=== PATIENT | female | born 1995 | race Caucasian/White ===

== ENCOUNTER 2017-07-11 16:07 | Observation (INO) | payer BC ==
[~2017-07-11] VITALS: Ht 157.5 cm; Wt 66.4 kg
[~2017-07-11 16:07] MED LIST: CELEXA20 MG PO; DIAZEPAM1 EAC1; DIAZEPAM1 EAC1 PR; KEPPRA750 MG PO; Keppra PO; LAMICTAL XR200 MG PO; LAMICTAL100 MG PO; LAMICTAL150 MG PO; LAMICTAL200 MG PO; LAMOTRIGINE150 MG PO; LAMOTRIGINE200 MG PO; LORAZEPAM1 MG PO; OXCARBAZEPINE150 MG PO; PROMETHAZINE HC25 M1 PO; TOPAMAX100 MG PO; TOPAMAX200 MG PO; TOPAMAX50 MG PO; ZONEGRAN100 MG PO; ZONEGRAN50 MG PO
[2017-07-11 16:33] LABS: HEMATOCRIT 38.7 % (36.0-46.0); HEMOGLOBIN 13.4 G/DL (11.9-15.5); MCH 29.9 PG (29.0-34.0); MCHC 34.6 G/DL (30.0-36.0); MCV 86.4 FL (83-99); PLATELET COUNT 268 K/uL (156-360); RBC DIS.WIDTH-CV 14.3 % (11.8-14.6); RBC DIS.WIDTH-SD 44.8 % (39-53); RED BLOOD COUNT 4.48 M/uL (3.80-5.20); WHITE BLOOD COUNT 9.9 K/uL (4.1-10.2)
[2017-07-11 16:45] LABS: ALBUMIN 4.4 g/dL (3.2-4.8); CHLORIDE 108 mEq/L (99-109); POTASSIUM 3.4 mEq/L (3.7-5.4); SODIUM 138 mEq/L (136-147)
[2017-07-11 16:47] LABS: GLUCOSE 113 mg/dL (70-99)
[2017-07-11 16:48] LABS: TOTAL PROTEIN 8.1 g/dL (6.4-8.3)
[2017-07-11 16:49] LABS: TOTAL BILIRUBIN 0.6 mg/dL (0.0-1.0)
[2017-07-11 16:50] LABS: SERUM ETHYL ALCOHOL < 10 mg/dL
[2017-07-11 16:51] LABS: ALKALINE PHOSPHATASE 57 IU/L (3-129); CREATININE 0.7 mg/dL (0.6-1.3); GFR ESTIMATE (CALCULATED) > 59 mL/min/
[2017-07-11 16:52] LABS: UREA NITROGEN (BUN) 7 mg/dL (9-23)
[2017-07-11 16:53] LABS: AST (GOT) 20 IU/L (2-34)
[2017-07-11 16:54] LABS: ALT (GPT) 15 IU/L (3-49)
[2017-07-11 17:20] LABS: QUANTITATIVE HCG 67111.6 MIU/ML
[2017-07-11 18:44] LABS: APPEARANCE CLEAR ((CLEAR)); BILIRUBIN NEGATIVE; BLOOD NEGATIVE; COLOR STRAW ((YELLOW)); GLUCOSE (STRIP) NEGATIVE; KETONES 20; LEUKOCYTES NEGATIVE; NITRITE NEGATIVE; PROTEIN (STRIP) NEGATIVE; SPECIFIC GRAVITY 1.006 (1.000-1.030); UROBILINOGEN 0.2 MG/DL (0.2-1.0)
[2017-07-11 18:51] LABS: AMPHETAMINE NEGATIVE (500 ng/mL); BARBITURATES NEGATIVE (200 ng/mL); BENZODIAZEPINES PRESUMPTIVE POSITIVE (150 ng/mL); BUPRENORPHINE NEGATIVE (10 ng/mL); COCAINE NEGATIVE (150 ng/mL); METHADONE NEGATIVE (200 ng/mL); METHAMPHETAMINE NEGATIVE (500 ng/mL); OPIATES (MORPHINE) NEGATIVE (100 ng/mL); OXYCODONE NEGATIVE (100 ng/mL); PHENCYCLIDINE NEGATIVE (25 ng/mL); PROPOXYPHENE NEGATIVE (300 ng/mL); THC CANNABINOIDS NEGATIVE (50 ng/mL); TRICYCLIC ANTIDEPRESSANTS NEGATIVE (300 ng/mL)
[2017-07-11 19:32] LABS: BENZODIAZEPINES, URINE SCREEN POSITIVE (200 ng/mL)
[2017-07-11] MEDS ORDERED: LAMOTRIGINE200 M1 PO (20:16)
[2017-07-11] MEDS ORDERED: DIAMOX250 MG PO (20:17)
[2017-07-11] MEDS ORDERED: LEVETIRACETAM750 MG PO (20:17)
[2017-07-11 22:47] VITALS: BP 108/57
[2017-07-12 04:17] VITALS: BP 98/56
[2017-07-12 05:40] LABS: HEMATOCRIT 28.6 % (36.0-46.0); MCHC 33.6 G/DL (30.0-36.0); MCV 89.4 FL (83-99); RBC DIS.WIDTH-CV 14.9 % (11.8-14.6)
[2017-07-12 05:42] LABS: HEMOGLOBIN 9.6 G/DL (11.9-15.5); PLATELET COUNT 181 K/uL (156-360)
[2017-07-12 05:55] LABS: CHLORIDE 112 MEQ/L (99-109); CREATININE 0.5 MG/DL (0.6-1.3); GFR ESTIMATE (CALCULATED) > 59 mL/min/; POTASSIUM 3.6 MEQ/L (3.7-5.4); SODIUM 137 MEQ/L (136-147); UREA NITROGEN (BUN) 7 mg/dL (9-23)
[2017-07-12 06:19] LABS: GLUCOSE 77 mg/dL (70-99)
[2017-07-12 07:00] VITALS: BP 112/70
[2017-07-12 09:25] LABS: UR CREATININE CONCENTRATION 124.3 MG/DL
[2017-07-12 10:59] LABS: IRON 87 MCG/DL (35-150); TRANSFERRIN (TIBC) 187.6 mg/dL (215-380); TRANSFERRIN SATUR. 46 % (20-55)
[2017-07-12 11:18] LABS: FERRITIN 6 NG/ML (10-291)
[2017-07-12 11:44] VITALS: BP 90/53
[2017-07-12 17:08] VITALS: BP 98/56
[2017-07-12 19:49] VITALS: BP 100/59
[2017-07-13 00:10] VITALS: BP 96/51
[2017-07-13 05:39] VITALS: BP 100/58
[2017-07-13 05:49] LABS: BASOPHIL (%) 0.3 % (0-1); EOSINOPHIL (%) 1.4 % (0-5); EOSINOPHIL COUNT 0.1 K/uL (0-0.3); HEMOGLOBIN 10.4 G/DL (11.9-15.5); IMMATURE GRANULOCYTE (%) 0.3 % (0.0-0.7); LYMPHOCYTE (%) 23.3 % (15-42); LYMPHOCYTE COUNT 2.1 K/uL (1.0-2.8); MCH 29.1 PG (29.0-34.0); MCHC 32.5 G/DL (30.0-36.0); MCV 89.4 FL (83-99); MONOCYTE (%) 5.9 % (3-12); MONOCYTE COUNT 0.5 K/uL (0-0.8); NEUTROPHIL (%) 68.8 % (45-76); PLATELET COUNT 202 K/uL (156-360); RBC DIS.WIDTH-CV 14.7 % (11.8-14.6); RED BLOOD COUNT 3.58 M/uL (3.80-5.20); WHITE BLOOD COUNT 8.8 K/uL (4.1-10.2)
[2017-07-13 06:32] LABS: CHLORIDE 111 MEQ/L (99-109); CREATININE 0.5 MG/DL (0.6-1.3); GFR ESTIMATE (CALCULATED) > 59 mL/min/; GLUCOSE 78 mg/dL (70-99); POTASSIUM 3.6 MEQ/L (3.7-5.4); SODIUM 138 MEQ/L (136-147); UREA NITROGEN (BUN) 5 mg/dL (9-23)
[2017-07-13 08:05] VITALS: BP 100/56
[2017-07-13 12:04] VITALS: BP 112/76
[2017-07-13] MEDS ORDERED: LAMICTAL XR200 MG PO (14:57)
[2017-07-13] MEDS ORDERED: PRENATAL TABLE1 EAC3 PO (14:58)
[2017-07-13] MEDS ORDERED: FOLIC ACID1 MG PO (14:58)
[2017-07-13 15:05] VITALS: BP 131/78
== END 2017-07-13 15:50 | disposition home or self-care (01) ==
LOC: EME 16:07 → EDOF 21:52 → 4SOUTH 21:52 → EDOF 21:52 → ENRESERV 21:53 → 4SOUTH 22:36
PROVIDERS: Emergency Medicine; Hospitalist; Internal Medicine
DX: O99.351 Diseases of the nervous system complicating pregnancy, first trimester (principal); Z3A.12 12 weeks gestation of pregnancy; G40.909 Epilepsy, unspecified, not intractable, without status epilepticus; Z91.19 Patient's noncompliance with other medical treatment and regimen; O99.321 Drug use complicating pregnancy, first trimester; F12.90 Cannabis use, unspecified, uncomplicated; O99.011 Anemia complicating pregnancy, first trimester; D64.9 Anemia, unspecified; O99.281 Endocrine, nutritional and metabolic diseases complicating pregnancy, first trimester; E87.6 Hypokalemia; O99.341 Other mental disorders complicating pregnancy, first trimester; F41.9 Anxiety disorder, unspecified; O26.891 Other specified pregnancy related conditions, first trimester; O21.9 Vomiting of pregnancy, unspecified
CPT/HCPCS: 80048; 80053; 81003; 82043; 82272; 82570; 82728; 83540; 84466; 84702; 84999; 85025; 85027; 99281; 99285; G0378; G0480; J1650; J1953; J2405; J3480; J7030; J7050

== ENCOUNTER 2017-08-04 14:05 | Inpatient (IN) | payer BC, OTHER ==
[~2017-08-04] VITALS: Ht 157.5 cm; Wt 67.7 kg
[~2017-08-04 14:05] MED LIST changes: +DIAMOX250 MG PO; +FOLIC ACID1 MG PO; +LAMOTRIGINE200 M1 PO; +LEVETIRACETAM750 MG PO; +PRENATAL TABLE1 EAC3 PO
[2017-08-04 15:07] LABS: HEMATOCRIT 33.4 % (36.0-46.0); HEMOGLOBIN 11.5 G/DL (11.9-15.5); MCH 30.3 PG (29.0-34.0); MCHC 34.4 G/DL (30.0-36.0); MCV 88.1 FL (83-99); PLATELET COUNT 236 K/uL (156-360); RBC DIS.WIDTH-CV 14.2 % (11.8-14.6); RBC DIS.WIDTH-SD 45.8 % (39-53); RED BLOOD COUNT 3.79 M/uL (3.80-5.20); WHITE BLOOD COUNT 11.3 K/uL (4.1-10.2)
[2017-08-04 15:17] LABS: CHLORIDE 110 mEq/L (99-109); SODIUM 137 mEq/L (136-147)
[2017-08-04 15:19] LABS: GLUCOSE 163 mg/dL (70-99)
[2017-08-04 15:23] LABS: CREATININE 0.7 mg/dL (0.6-1.3); GFR ESTIMATE (CALCULATED) > 59 mL/min/; UREA NITROGEN (BUN) 9 mg/dL (9-23)
[2017-08-04 17:21] LABS: APPEARANCE TURBID ((CLEAR)); BILIRUBIN NEGATIVE; BLOOD MODERATE; COLOR YELLOW ((YELLOW)); GLUCOSE (STRIP) NEGATIVE; KETONES NEGATIVE; LEUKOCYTES NEGATIVE; NITRITE NEGATIVE; PROTEIN (STRIP) 100; SPECIFIC GRAVITY 1.017 (1.000-1.030); UROBILINOGEN 0.2 MG/DL (0.2-1.0)
[2017-08-04] MEDS ORDERED: FOLIC ACID1 MG PO (17:23)
[2017-08-04] MEDS ORDERED: LAMOTRIGINE200 M1 PO (17:25)
[2017-08-04] MEDS ORDERED: LEVETIRACETAM750 MG PO (17:25)
[2017-08-04] MEDS ORDERED: DIAMOX250 MG PO (17:26)
[2017-08-04] MEDS ORDERED: FLONASE16 G1 BOTH NARES (17:28)
[2017-08-04 17:31] LABS: AMPHETAMINE NEGATIVE (500 ng/mL); BARBITURATES NEGATIVE (200 ng/mL); BENZODIAZEPINES PRESUMPTIVE POSITIVE (150 ng/mL); BUPRENORPHINE NEGATIVE (10 ng/mL); COCAINE NEGATIVE (150 ng/mL); METHADONE NEGATIVE (200 ng/mL); METHAMPHETAMINE NEGATIVE (500 ng/mL); OPIATES (MORPHINE) NEGATIVE (100 ng/mL); OXYCODONE NEGATIVE (100 ng/mL); PHENCYCLIDINE NEGATIVE (25 ng/mL); PROPOXYPHENE NEGATIVE (300 ng/mL); THC CANNABINOIDS NEGATIVE (50 ng/mL); TRICYCLIC ANTIDEPRESSANTS NEGATIVE (300 ng/mL)
[2017-08-04 17:47] LABS: BACTERIA 1+ /HPF; EPITHELIAL CELLS RARE /HPF; MUCUS NONE SEEN /LPF; RED BLOOD CELLS RARE /HPF (0-5); UCUL ADDED? NO; WHITE BLOOD CELLS NONE SEEN /HPF (0-5)
[2017-08-04 17:48] LABS: URIC ACID CRYSTALS 2+ /HPF
[2017-08-04 17:53] LABS: COMMENTS - BLOOD GASES +C; FI02 21 %; PCO2 30 mm Hg (35-45); SITE RR +A; TOTAL RESP RATE 20 resp/min; pH 7.39 (7.35-7.45)
[2017-08-04 17:54] LABS: BASE EXCESS -5.7 mEq/L (-3 to +3); BICARBONATE 18.2 mEq/L (22-26); CARBOXY HGB 1.1 % (0-5); METHEMOGLOBIN 1.1 % (0-1.5); O2 SATURATION (CALCULATED) 99.2 % (95-99); PO2 101 mm Hg (80-100)
[2017-08-04 18:01] LABS: BENZODIAZEPINES, URINE SCREEN Negative (200 ng/mL)
[2017-08-04 18:06] LABS: QUANTITATIVE HCG 34983.4 MIU/ML
[2017-08-04 18:17] LABS: ALBUMIN 3.6 g/dL (3.2-4.8)
[2017-08-04 18:18] LABS: CHLORIDE 113 mEq/L (99-109); POTASSIUM 3.4 mEq/L (3.7-5.4); SODIUM 139 mEq/L (136-147)
[2017-08-04 18:20] LABS: TOTAL PROTEIN 6.5 g/dL (6.4-8.3)
[2017-08-04 18:22] LABS: TOTAL BILIRUBIN 0.3 mg/dL (0.0-1.0)
[2017-08-04 18:23] LABS: ALKALINE PHOSPHATASE 51 IU/L (3-129); CREATININE 0.6 mg/dL (0.6-1.3); GFR ESTIMATE (CALCULATED) > 59 mL/min/
[2017-08-04 18:24] LABS: GLUCOSE 115 mg/dL (70-99)
[2017-08-04 18:25] LABS: AST (GOT) 17 IU/L (2-34); UREA NITROGEN (BUN) 7 mg/dL (9-23)
[2017-08-04 18:26] LABS: ALT (GPT) 17 IU/L (3-49)
[2017-08-04 20:52] VITALS: BP 100/56
[2017-08-05 01:31] VITALS: BP 100/52
[2017-08-05 03:55] VITALS: BP 98/50
[2017-08-05 05:50] LABS: HEMATOCRIT 29.6 % (36.0-46.0); MCH 30.2 PG (29.0-34.0); MCHC 33.8 G/DL (30.0-36.0); MCV 89.4 FL (83-99); PLATELET COUNT 228 K/uL (156-360); RBC DIS.WIDTH-CV 14.6 % (11.8-14.6); RBC DIS.WIDTH-SD 47.5 % (39-53); RED BLOOD COUNT 3.31 M/uL (3.80-5.20)
[2017-08-05 05:51] LABS: ALBUMIN 3.3 G/DL (3.2-4.8); ALKALINE PHOSPHATASE 41 IU/L (3-129); ALT (GPT) 14 IU/L (3-49); AST (GOT) 14 IU/L (2-34); CHLORIDE 108 MEQ/L (99-109); CREATININE 0.6 MG/DL (0.6-1.3); DIRECT BILIRUBIN 0.1 mg/dL (0.0-0.3); GFR ESTIMATE (CALCULATED) > 59 mL/min/; GLUCOSE 102 mg/dL (70-99); SODIUM 137 MEQ/L (136-147); TOTAL BILIRUBIN 0.3 MG/DL (0.0-1.0); TOTAL PROTEIN 5.8 G/DL (6.4-8.3); UREA NITROGEN (BUN) 9 mg/dL (9-23)
[2017-08-05 08:16] VITALS: BP 108/61
[2017-08-05] MEDS ORDERED: AMOX TR-K CLV1 EAC4 PO (11:06)
[2017-08-05 11:56] VITALS: BP 113/56
[2017-08-05 15:41] VITALS: BP 116/60
== END 2017-08-05 17:07 | disposition home or self-care (01) | DRG 781 ==
LOC: EME 14:05 → 4EAST 17:02 → EDOF 17:02 → ENRESERV 17:29 → CANRESERV 17:29 → ENRESERV 17:38 → 4EAST 20:33
PROVIDERS: Family Medicine; Internal Medicine
DX: O99.352 Diseases of the nervous system complicating pregnancy, second trimester (principal); E87.2 Acidosis; F33.9 Major depressive disorder, recurrent, unspecified; G40.409 Other generalized epilepsy and epileptic syndromes, not intractable, without status epilepticus; O99.282 Endocrine, nutritional and metabolic diseases complicating pregnancy, second trimester; F12.90 Cannabis use, unspecified, uncomplicated; O99.322 Drug use complicating pregnancy, second trimester; R32 Unspecified urinary incontinence; Z3A.17 17 weeks gestation of pregnancy; F41.9 Anxiety disorder, unspecified; O99.342 Other mental disorders complicating pregnancy, second trimester; R80.9 Proteinuria, unspecified; Z91.14 Patient's other noncompliance with medication regimen; Z91.19 Patient's noncompliance with other medical treatment and regimen; Z82.0 Family history of epilepsy and other diseases of the nervous system; Z83.3 Family history of diabetes mellitus; Z82.49 Family history of ischemic heart disease and other diseases of the circulatory system; Z82.5 Family history of asthma and other chronic lower respiratory diseases
CPT/HCPCS: 36600; 76805; 80048; 80053; 80175 90; 81003; 82248; 82803; 84702; 84999; 85027; 95819; J2060; J2405; J7040

== ENCOUNTER 2017-08-15 10:37 | Observation (INO) | payer BC, OTHER ==
[~2017-08-15] VITALS: Ht 160 cm; Wt 64.0 kg
[~2017-08-15 10:37] MED LIST changes: +AMOX TR-K CLV1 EAC4 PO; +FLONASE16 G1 BOTH NARES
[2017-08-15 11:52] LABS: HEMATOCRIT 42.5 % (36.0-46.0); MCH 30.9 PG (29.0-34.0); MCHC 34.6 G/DL (30.0-36.0); MCV 89.3 FL (83-99); RBC DIS.WIDTH-CV 14.6 % (11.8-14.6); RBC DIS.WIDTH-SD 47.5 % (39-53); WHITE BLOOD COUNT 8.8 K/uL (4.1-10.2)
[2017-08-15 12:04] LABS: HEMOGLOBIN 14.7 G/DL (11.9-15.5); RED BLOOD COUNT 4.76 M/uL (3.80-5.20)
[2017-08-15 12:08] LABS: ALBUMIN 3.9 g/dL (3.2-4.8)
[2017-08-15 12:09] LABS: CHLORIDE 110 mEq/L (99-109); POTASSIUM 3.1 mEq/L (3.7-5.4); SODIUM 138 mEq/L (136-147)
[2017-08-15 12:11] LABS: GLUCOSE 157 mg/dL (70-99)
[2017-08-15 12:13] LABS: TOTAL BILIRUBIN 0.3 mg/dL (0.0-1.0)
[2017-08-15 12:14] LABS: ALKALINE PHOSPHATASE 59 IU/L (3-129)
[2017-08-15 12:15] LABS: CREATININE 0.7 mg/dL (0.6-1.3); GFR ESTIMATE (CALCULATED) > 59 mL/min/
[2017-08-15 12:16] LABS: AST (GOT) 14 IU/L (2-34); UREA NITROGEN (BUN) 9 mg/dL (9-23)
[2017-08-15 12:18] LABS: ALT (GPT) 17 IU/L (3-49)
[2017-08-15 12:18] LABS: BASOPHIL (%) 0.1 % (0-1); EOSINOPHIL (%) 0.1 % (0-5); IMMATURE GRANULOCYTE (%) 0.3 % (0.0-0.7); LYMPHOCYTE (%) 8.7 % (15-42); LYMPHOCYTE COUNT 0.8 K/uL (1.0-2.8); MONOCYTE (%) 2.4 % (3-12); MONOCYTE COUNT 0.2 K/uL (0-0.8); NEUTROPHIL (%) 88.4 % (45-76); NEUTROPHIL COUNT 7.8 K/uL (1.8-6.4)
[2017-08-15 12:28] LABS: PLAT.SUFFICIENCY ADEQUATE; PLATELET COUNT 183 K/uL (156-360)
[2017-08-15 12:44] LABS: QUANTITATIVE HCG 31418.9 MIU/ML
[2017-08-15 14:37] LABS: APPEARANCE SL.HAZY ((CLEAR)); BILIRUBIN NEGATIVE; BLOOD NEGATIVE; COLOR YELLOW ((YELLOW)); GLUCOSE (STRIP) NEGATIVE; KETONES NEGATIVE; LEUKOCYTES MODERATE; NITRITE NEGATIVE; PROTEIN (STRIP) NEGATIVE; UROBILINOGEN 0.2 MG/DL (0.2-1.0)
[2017-08-15 14:42] LABS: BACTERIA RARE /HPF; EPITHELIAL CELLS 2+ /HPF; MUCUS TRACE /LPF; UCUL ADDED? NO; WHITE BLOOD CELLS 0-5 /HPF (0-5)
[2017-08-15] MEDS ORDERED: FEOSOL325 MG PO (15:39)
[2017-08-15] MEDS ORDERED: PNV 29-1 TABLE1 EACH PO (15:39)
[2017-08-15] MEDS ORDERED: TYLENOL EXTRA500 MG PO (15:40)
[2017-08-15 17:41] VITALS: BP 117/59
[2017-08-15 19:53] VITALS: BP 109/55
[2017-08-15 23:56] VITALS: BP 106/57
[2017-08-16 04:16] VITALS: BP 108/56
[2017-08-16 07:00] LABS: HEMATOCRIT 32.4 % (36.0-46.0); HEMOGLOBIN 10.5 G/DL (11.9-15.5); MCH 29.6 PG (29.0-34.0); MCHC 32.4 G/DL (30.0-36.0); MCV 91.3 FL (83-99); PLATELET COUNT 220 K/uL (156-360); RBC DIS.WIDTH-SD 50.2 % (39-53); RED BLOOD COUNT 3.55 M/uL (3.80-5.20); WHITE BLOOD COUNT 12.1 K/uL (4.1-10.2)
[2017-08-16 07:15] LABS: ALBUMIN 3.4 G/DL (3.2-4.8); ALKALINE PHOSPHATASE 47 IU/L (3-129); ALT (GPT) 12 IU/L (3-49); AST (GOT) 12 IU/L (2-34); CHLORIDE 106 MEQ/L (99-109); CREATININE 0.5 MG/DL (0.6-1.3); GFR ESTIMATE (CALCULATED) > 59 mL/min/; POTASSIUM 3.6 MEQ/L (3.7-5.4); SODIUM 138 MEQ/L (136-147); TOTAL BILIRUBIN 0.4 MG/DL (0.0-1.0); TOTAL PROTEIN 5.5 G/DL (6.4-8.3); UREA NITROGEN (BUN) 7 mg/dL (9-23)
[2017-08-16 07:18] LABS: GLUCOSE 79 mg/dL (70-99)
[2017-08-16 07:22] VITALS: BP 105/54
[2017-08-16 07:45] LABS: MAGNESIUM 1.7 mg/dl (1.3-2.7)
[2017-08-16 11:04] VITALS: BP 91/54
[2017-08-16 15:29] VITALS: BP 103/55
[2017-08-16] MEDS ORDERED: CLONAZEPAM0.5 MG PO (16:30)
== END 2017-08-16 17:14 | disposition home or self-care (01) ==
LOC: EME 10:37 → EDOF 15:30 → ENRESERV 15:31 → 2EAST 17:05
PROVIDERS: Emergency Medicine; Internal Medicine
DX: O99.352 Diseases of the nervous system complicating pregnancy, second trimester (principal); G40.409 Other generalized epilepsy and epileptic syndromes, not intractable, without status epilepticus; O99.282 Endocrine, nutritional and metabolic diseases complicating pregnancy, second trimester; E87.6 Hypokalemia; O99.342 Other mental disorders complicating pregnancy, second trimester; F41.9 Anxiety disorder, unspecified; F32.9 Major depressive disorder, single episode, unspecified; F43.0 Acute stress reaction; G47.00 Insomnia, unspecified; O21.9 Vomiting of pregnancy, unspecified; Z3A.18 18 weeks gestation of pregnancy
CPT/HCPCS: 80053; 80175 90; 81003; 83735; 84702; 85025; 85027; 99281; 99285; G0378; J1650; J1953; J2060; J2405; J3475; J7040; J7050